=== PATIENT | female | born 1935 | race Hispanic/Latino ===

== ENCOUNTER 2017-12-27 17:05 | Emergency (ER) | payer MEDICARE ==
[2017-12-27 17:05] VITALS: BMI 25.4
[2017-12-27 18:25] VITALS: RESP 20; TEMP 98.5; O2SAT 97
--- NOTE | 2017-12-27 18:56 | ED PDOC ---
Arrival/HPI - General Chief Complaint: Headache Time Seen by Provider: 12/27/17 17:21 Historian: Patient - History of Present Illness Time/Duration: Other (Yesterday) Symptom Onset: Gradual Symptom Course: Improving Quality: Aching Severity Level: Mild Activities at Onset: Rest Associated Symptoms (Text): 12/27/17 18:53 Patient complains of a right sided temporal parietal headache since yesterday. She reports that she ran out of her blood pressure medication and believes that the headache is related to her blood pressure. She filled her medications today and the headache actually began to improve after taking her blood pressure medications. There was some nausea which has completely resolved. No vomiting. No dizziness. No numbness tingling or paresthesias. No weakness. No neck pain. No trauma. No visual disturbance. No rash. She states that she does get headaches on her right side sometimes. Past Medical History - Infectious Disease Hx of Infectious Diseases: None - Reproductive Menopause: Yes - Cardiac Hx Cardiac Disorders: Yes Hx Hypertension: Yes Other/Comment: Carotid artery surgery 2008 - Pulmonary Hx Respiratory Disorders: Yes Other/Comment: pulmonary nodules bilaterally - Neurological Hx Neurological Disorder: Yes Hx Dizziness: Yes - HEENT Hx HEENT Disorder: Yes Hx Cataracts: Yes (bilateral cateract surgery) - Renal Hx Renal Disorder: Yes Hx Kidney Stones: Yes Other/Comment: "leaky kidnies" - gained 53lbs in 1 month - over 20years ago - Endocrine/Metabolic Hx Endocrine Disorders: Yes Hx Diabetes Mellitus Type 2: Yes Hx Hypothyroidism: Yes - Hematological/Oncological Hx Blood Disorders: Yes Hx Cancer: Yes (bilateral breast; bilateral lumpectomies; bladder cancer) Hx Shingles: Yes (19 years ago) - Integumentary Hx Dermatological Disorder: Yes Hx Basal Cell Carcinoma: Yes (on nose - approx 5-6 years ago) - Musculoskeletal/Rheumatological Hx Musculoskeletal Disorders: No Hx Falls: No - Gastrointestinal Hx Gastrointestinal Disorders: Yes Hx Gastroesophageal Reflux: Yes - Genitourinary/Gynecological Hx Genitourinary Disorders: No - Psychiatric Hx Psychophysiologic Disorder: No Hx Substance Use: No - Surgical History Hx Breast Biopsy: Yes (lump removal, bilateral breasts) Hx Cardiac Catheterization: Yes (04/03/16) Hx Coronary Stent: Yes (x1 (04/03/16)) - Anesthesia Hx Anesthesia: Yes Hx Anesthesia Reactions: No Hx Malignant Hyperthermia: No Family/Social History - Physician Review Nursing Documentation Reviewed: Yes Family/Social History: Unknown Family HX Smoking Status: Never Smoked Hx Alcohol Use: No Hx Substance Use: No Allergies/Home Meds Allergies/Adverse Reactions: Allergies codeine Allergy (Verified 12/27/17 18:25) ANAPHYLAXIS Pxwihsp-[id number]-Bqf Reductase Inhibitor Allergy (Verified 12/27/17 18:25) PAIN Sulfa (Sulfonamide Antibiotics) Allergy (Verified 12/27/17 18:25) ANAPHYLAXIS Home Medications: Home Meds Medication Instructions Recorded Confirmed GlipiZIDE [Glucotrol] 20 mg PO DAILY 04/10/16 12/27/17 Insulin Glargine, Recombina 25 units SC BID 04/10/16 12/27/17 [Lantus] Letrozole [Letrozole] 2.5 mg PO DAILY 04/10/16 12/27/17 Levothyroxine [Synthroid] 100 mcg PO .MON-SAT 04/10/16 12/27/17 Metoprolol Tartrate [Lopressor] 0.5 tab PO Q12 04/10/16 12/27/17 Amlodipine Besylate/Benazepril 10 mg PO DAILY 08/11/16 12/27/17 [Amlodipine-Benazepril 10-40 mg] Clopidogrel [Plavix] 75 mg PO DAILY 08/11/16 12/27/17 Levothyroxine [Synthroid] 50 mcg PO .Thursday08/11/16 12/27/17 Review of Systems - Physician Review All systems were reviewed & negative as marked: Yes - Review of Systems Constitutional: Normal ENT: Normal Respiratory: Normal Cardiovascular: Normal Gastrointestinal: Normal, Nausea. absent: Abdominal Pain, Vomiting Neurological: Headache. absent: Dizziness, Focal Weakness, Gait Changes, Speech Changes, Facial Droop, Disequilibrium, Seizure Physical Exam Vital Signs Temp Pulse Resp BP Pulse Ox 12/27/17 21:04 72 138/68 12/27/17 18:17 98.5 F 112 H 20 163/74 H 97 Temperature: Afebrile Blood Pressure: Hypertensive Pulse: Tachycardic Respiratory Rate: Normal Appearance: Positive for: Well-Appearing, Non-Toxic, Comfortable Pain Distress: None Mental Status: Positive for: Alert and Oriented X 3 - Systems Exam Head: Present: Atraumatic, Normocephalic. No: Tenderness, Contusion, Swelling, Ecchymosis, Abrasion, Laceration Pupils: Present: PERRL Extroacular Muscles: Present: EOMI Conjunctiva: Present: Normal Ears: Present: NORMAL TM, Normal Canal. No: Erythema Mouth: Present: Moist Mucous Membranes Pharnyx: No: ERYTHEMA, EXUDATE, TONSILS ENLARGED Neck: Present: Normal Range of Motion. No: Meningeal Signs, MIDLINE TENDERNESS , Paraspinal Tenderness Respiratory/Chest: Present: Clear to Auscultation, Good Air Exchange. No: Respiratory Distress, Accessory Muscle Use Cardiovascular: Present: Regular Rate and Rhythm, Normal S1, S2. No: Murmurs Upper Extremity: Present: Normal Inspection. No: Cyanosis, Edema Lower Extremity: Present: Normal Inspection. No: Edema Neurological: Present: GCS=15, CN II-XII Intact, Speech Normal, Motor Func Grossly Intact, Normal Cerebellar Funct, Gait Normal Skin: Present: Warm Psychiatric: Present: Alert, Oriented x 3, Normal Insight, Normal Concentration Medical Decision Making - RAD Interpretation Radiology Orders: 12/27/17 18:51 HEAD W/O CONTRAST [CT] Stat CT scan of the head as read by the radiologist shows no acute findings. Cutting Table Operator: Radiologist - Medication Orders Current Medication Orders: Discontinued Medications Acetaminophen (Tylenol 325mg Tab) 975 mg PO STAT STA Stop: 12/27/17 18:53 Last Admin: 12/27/17 18:58 Dose: 975 mg Disposition/Present on Arrival - Present on Arrival Any Indicators Present on Arrival: No History of DVT/PE: No History of Uncontrolled Diabetes: No Urinary Catheter: No History of Decub. Ulcer: No History Surgical Site Infection Following: None - Disposition Have Diagnosis and Disposition been Completed?: Yes Diagnosis: Headache, Hypertension Disposition: HOME/ ROUTINE Disposition Time: 21:05 Patient Plan: Discharge Condition: GOOD Discharge Instructions (ExitCare): Headache, Adult, High Blood Pressure (DC) Additional Instructions: Tylenol as directed on bottle as needed. Follow-up with PMD. Follow up in ER as needed. Referrals: Jennifer Garcia DO [Primary Care Provider] - Follow up with primary Forms: [employer] ([place])
--- NOTE | 2017-12-27 21:00 | CT ---
EXAM: CT Head Without Intravenous Contrast EXAM DATE/TIME: 12/27/2017 6:51 PM CLINICAL HISTORY: The patient age is 82 years old and is female; Signs and symptoms; Dizziness; Patient HX: Headache; Additional info: [facility] Facility exam id and description: Ct heads head w/o contrast TECHNIQUE: Axial computed tomography images of the head/brain without intravenous contrast. All CT scans at this facility use one or more dose reduction techniques, viz.: automated exposure control; ma/kV adjustment per patient size (including targeted exams where dose is matched to indication; i.e. head); or iterative reconstruction technique. Coronal and sagittal reformatted images were created and reviewed. COMPARISON: No relevant prior studies available. FINDINGS: Brain: There are small periventricular foci of hypodensity, likely representing small vessel ischemic disease in a patient this age. The acuity of the white matter disease is indeterminate. The white-foss differentiation is preserved demonstrating no acute territorial type infarct. There is mild prominence of the ventricles and sulci, compatible with atrophy. No acute intracranial hemorrhage is seen. Midline shift: There is no midline shift. Ventricles: See above. Bones/joints: The calvarium demonstrates no evidence for a depressed fracture. Soft tissues: No acute abnormality. Vasculature: There is atherosclerotic calcification of the intracranial internal carotid arteries. Sinuses: There is mucosal thickening of the sphenoid sinus. Mastoid air cells: No mastoid effusion. IMPRESSION: 1. No acute intracranial hemorrhage or acute territorial type infarct. 2. There are small periventricular foci of hypodensity, likely representing small vessel ischemic disease in a patient this age. 3. Mild atrophy. 4. Paranasal sinus disease is noted above.
[2017-12-27 21:05] VITALS: BP 138/68; PULSE 72
== END 2017-12-27 21:19 | disposition home or self-care (01) ==
LOC: ED 17:05
DX: I10 Essential (primary) hypertension (principal); R51 Headache; E11.9 Type 2 diabetes mellitus without complications; E03.9 Hypothyroidism, unspecified